=== PATIENT | male | born 1990 | race Caucasian/White ===

== ENCOUNTER 2016-08-12 12:01 | Emergency (ER) | payer OTHER, SELFPAY ==
[2016-08-12 12:15] VITALS: BP 132/86; PULSE 75; RESP 18; TEMP 97.9; O2SAT 98; BMI 29.6
[2016-08-12] MEDS ORDERED: Oxycodone/Acetaminophen 5/325 mg Tab PO STA (12:35)
--- NOTE | 2016-08-12 12:38 | ED PDOC ---
Arrival/HPI - General Chief Complaint: Upper Extremity Problem/Injury Time Seen by Provider: 08/12/16 12:28 Historian: Patient - History of Present Illness Narrative History of Present Illness (Text): 08/12/16 14:26 26yo male present with c/o right 5th finger "stabbing pain. He stated that he fractured his finger while in [place]. Has a surgery and splint placed on Sunday and was given Oxycodone for the pain. He notes that he forgot the Oxycodone in [place] . He took Alave yesterday with temporary relieve. Denies tingling, numbness, focal weakness, any other complaint. Past Medical History - Provider Review Nursing Documentation Reviewed: Yes - Past Medical History Past Medical History: No Previous - Cardiac Hx Cardiac Disorders: No - Pulmonary Hx Respiratory Disorders: Yes - Neurological Hx Neurological Disorder: No - HEENT Hx HEENT Disorder: No - Renal Hx Renal Disorder: No - Endocrine/Metabolic Hx Endocrine Disorders: No - Hematological/Oncological Hx Blood Disorders: No - Integumentary Hx Dermatological Disorder: No - Musculoskeletal/Rheumatological Hx Musculoskeletal Disorders: No - Gastrointestinal Hx Gastrointestinal Disorders: No - Genitourinary/Gynecological Hx Genitourinary Disorders: No - Psychiatric Hx Depression: No Hx Emotional Abuse: No Hx Physical Abuse: No Hx Substance Use: No - Past Surgical History Past Surgical History: No Previous - Surgical History Hx Musculoskeletal Surgery: Yes (right hand surgery) - Anesthesia Hx Anesthesia: Yes Hx Anesthesia Reactions: No Hx Malignant Hyperthermia: No - Suicidal Assessment Feels Threatened In Home Enviroment: No Family/Social History - Physician Review Nursing Documentation Reviewed: Yes Family/Social History: Unknown Family HX Smoking Status: Never Smoked Hx Alcohol Use: Yes Frequency of alcohol use: Few days per week Hx Substance Use: No Hx Substance Use Treatment: No Allergies/Home Meds Allergies/Adverse Reactions: Allergies No Known Allergies Allergy (Verified 08/12/16 12:15) Home Medications: Home Meds Medication Instructions Recorded Confirmed Oxycodone HCl [Oxycontin] 5 mg PO PRN PRN 08/12/16 08/12/16 Review of Systems - Physician Review All systems were reviewed & negative as marked: Yes - Review of Systems Constitutional: Normal Eyes: Normal ENT: Normal Respiratory: Normal Cardiovascular: Normal Gastrointestinal: Normal Genitourinary Male: Normal Musculoskeletal: Arthralgias (Right 5th finger pain) Skin: Normal Neurological: Normal Endocrine: Normal Hemo/Lymphatic: Normal Psychiatric: Normal Physical Exam Vital Signs Reviewed: Yes Vital Signs Temp Pulse Resp BP Pulse Ox 08/12/16 12:09 97.9 F 75 18 132/86 98 Temperature: Afebrile Blood Pressure: Normal Pulse: Regular Respiratory Rate: Normal Appearance: Positive for: Well-Appearing, Non-Toxic, Comfortable Pain Distress: None Mental Status: Positive for: Alert and Oriented X 3 - Systems Exam Head: Present: Atraumatic, Normocephalic Pupils: Present: PERRL Extroacular Muscles: Present: EOMI Conjunctiva: Present: Normal Mouth: Present: Moist Mucous Membranes Neck: Present: Normal Range of Motion Respiratory/Chest: Present: Clear to Auscultation, Good Air Exchange. No: Respiratory Distress, Accessory Muscle Use Cardiovascular: Present: Regular Rate and Rhythm, Normal S1, S2. No: Murmurs Abdomen: Present: Normal Bowel Sounds. No: Tenderness, Distention, Peritoneal Signs Back: Present: Normal Inspection Upper Extremity: Present: Normal Inspection, Other (Right hand noted with splint in place. Pt have ROM of his 5th finger. NVI. No discoloration of finger noted. Unable to evaluate wrist pusle secondary to the splint in place). No: Cyanosis, Edema Lower Extremity: Present: Normal Inspection. No: Edema Neurological: Present: GCS=15, CN II-XII Intact, Speech Normal Skin: Present: Warm, Dry, Normal Color. No: Rashes Psychiatric: Present: Alert, Oriented x 3, Normal Insight, Normal Concentration Medical Decision Making ED Course and Treatment: 08/12/16 14:30 PT presented for stated history. He came to ED for pain medication. He had ROM in ED. NVI. He was DC home with Tylenol #3. Referred to ortho. Advised TRT ED for any new or worsening symptoms. - Medication Orders Current Medication Orders: Discontinued Medications Oxycodone/Acetaminophen (Percocet 5/325 Mg Tab) 1 tab PO STAT STA Stop: 08/12/16 12:36 Last Admin: 08/12/16 12:43 Dose: 1 tab Disposition/Present on Arrival - Present on Arrival Any Indicators Present on Arrival: No History of DVT/PE: No History of Uncontrolled Diabetes: No Urinary Catheter: No History of Decub. Ulcer: No History Surgical Site Infection Following: None - Disposition Have Diagnosis and Disposition been Completed?: Yes Diagnosis: Finger fracture Disposition: HOME/ ROUTINE Disposition Time: 12:40 Patient Plan: Discharge Condition: STABLE Discharge Instructions (ExitCare): Finger Fracture (ED) Additional Instructions: Follow up with orthopedist Return to ED for any new or worsening symptoms Prescriptions: Acetaminophen with Codeine [Tylenol with Codeine #3 Tablet] 1 each PO Q6 #7 tablet Referrals: [facility] [Primary Care Provider] - Follow up with primary Pierce Saunders MD [Staff Provider] - Follow up with primary
== END 2016-08-12 12:46 | disposition home or self-care (01) ==
LOC: ED 12:01
DX: S62.606D Fracture of unspecified phalanx of right little finger, subsequent encounter for fracture with routine healing (principal); X58.XXXD Exposure to other specified factors, subsequent encounter